=== PATIENT | female | born 1935 | race Caucasian/White ===

== ENCOUNTER → 2016-10-12 | Outpatient (CLI) | payer MEDICARE ==
[~2016-10-12] MED LIST: /WARF25TA OR; ACET65TA OR; ADVIL PO; ATEN50TA2 OR; FERR325T OR; LISINOPRIL/HCTZ PO; VICO5TAB OR
--- NOTE | 2016-10-14 09:14 | DEXA ---
AP SPINE L1 - L4 1.058 -1.1 0.9 LT FEMUR TOTAL 0.823 -1.5 0.7 RT FEMUR TOTAL 0.783 -1.8 0.4 TOTAL BODY TOTAL OTHER DUAL FEMUR FRAX* ASSESSMENT Risk factors: None. 10 year probability of fracture Major osteoporotic fracture 18.1 % Hip fracture 6.3 % COMMENTS: There is low bone density of the spine and hips. The density of the spine has increased 9.5% since the initial exam on 1998. The spine density has increased 12.3% since the most recent exam on 05/18/2010. The density of the left hip has decreased 10.3% since the initial exam on 1998. The density of the left hip has decreased 3.9% since the most recent exam on . The density of the right hip has decreased 9.4% since the initial exam on 1998. The density of the right hip has increased 0.0% since the most recent exam on FOLLOW-UP: Recommendation for the next bone density exam: 2 years. NESHA
== END | disposition home or self-care (01) ==
LOC: M WHC 10:50
PROVIDERS: ATTEND Internal Medicine Medical Oncology
DX: M85.89 Other specified disorders of bone density and structure, multiple sites (principal); Z85.3 Personal history of malignant neoplasm of breast

== ENCOUNTER → 2017-01-10 | Outpatient (REF) | payer MEDICARE | LOC: M LAB REF 12:33 | PROVIDERS: ATTEND Internal Medicine Medical Oncology | DX: C50.919 Malignant neoplasm of unspecified site of unspecified female breast (principal) ==

== ENCOUNTER → 2017-01-17 | Outpatient (CLI) | payer MEDICARE ==
--- NOTE | 2017-01-17 13:37 | REP ---
RIGHT HUMERUS, TWO VIEWS: HISTORY: Fall. There is no acute fracture or dislocation. There is narrowing of the acromioclavicular joint with associated osteophyte formation. IMPRESSION: Degenerative change as described above. Signed by John Padilla MD 01/17/2017 01:39 P
== END ==
LOC: M RAD 10:03
PROVIDERS: ATTEND Internal Medicine Medical Oncology
DX: M79.601 Pain in right arm (principal)

== ENCOUNTER 2017-02-14 14:13 | Outpatient (RCR) | payer MEDICARE | END 2017-02-15 | LOC: M PT 14:13 | PROVIDERS: ATTEND Internal Medicine Medical Oncology | DX: Z51.89 Encounter for other specified aftercare (principal); I89.0 Lymphedema, not elsewhere classified | CPT/HCPCS: 97110; 97140; 97162; G8984; G8985 ==

== ENCOUNTER 2017-02-24 09:57 | Outpatient (RCR) | payer MEDICARE | END 2017-03-17 | disposition home or self-care (01) | LOC: M PT 09:57 | PROVIDERS: ATTEND Internal Medicine Medical Oncology | DX: Z51.89 Encounter for other specified aftercare (principal); I89.0 Lymphedema, not elsewhere classified ==

== ENCOUNTER → 2017-03-20 | Outpatient (REF) | payer MEDICARE ==
[2017-03-20 20:32] LABS: ANION GAP 8 MEQ/L (8-16); BLOOD UREA NITROGEN 24 MG/DL (7-18); CALCIUM LEVEL 9.6 MG/DL (8.8-10.2); CARBON DIOXIDE LEVEL 30 MEQ/L (21-32); CHLORIDE LEVEL 105 MEQ/L (98-107); CREATININE FOR GFR 0.91 MG/DL (0.55-1.02); GLOMERULAR FILTRATION RATE > 60.0 (>32); GLUCOSE, FASTING 87 MG/DL (83-110); POTASSIUM SERUM 3.4 MEQ/L (3.5-5.1); SODIUM LEVEL 143 MEQ/L (136-145)
== END ==
LOC: M SFHCPLAZ 15:46
PROVIDERS: ATTEND Family Medicine
DX: I10 Essential (primary) hypertension (principal)
CPT/HCPCS: 36415; 80048; 90670; G0009; G0463

== ENCOUNTER → 2017-04-12 | Outpatient (REF) | payer MEDICARE | LOC: M LAB REF 13:27 | PROVIDERS: ATTEND Internal Medicine Medical Oncology | DX: C50.919 Malignant neoplasm of unspecified site of unspecified female breast (principal) ==

== ENCOUNTER → 2017-08-17 | Outpatient (CLI) | payer MEDICARE ==
--- NOTE | 2017-08-17 08:59 | REPMRS ---
Patient History The patient states she has not had a clinical breast exam in over a year. Patient is postmenopausal and has history of bilateral breast cancer at age 80. No known family history of cancer. Malignant radio exam breast specimen of both breasts, July 22, 2016. Malignant localization of breast nodule of the right breast, July 22, 2016. Malignant ultrasound-guided core biopsy of the right breast, June 08, 2016. Digital Woman Screen Mammo: August 17, 2017 - Exam #: [id number] Bilateral CC and MLO view(s) were taken. Technologist: Eli Hook, Technologist Prior study comparison: June 09, 2016, right breast digital mammo diagnostic unilateral, performed at [facility]. May 18, 2016, right breast digital mammo diagnostic unilateral, performed at [facility]. May 05, 2016, digital woman screen mammo performed at [facility]. March 26, 2015, digital woman screen mammo performed at [facility]. FINDINGS: There are scattered fibroglandular densities. There has been no change in the appearance of the mammogram from the prior studies. There is a mild amount of scattered fibroglandular density which is fairly symmetric. There is no interval development of dominant mass, architectural distortion, or clustered microcalcification suggestive of malignancy. ASSESSMENT: BI-RADS/ACR category 1 mammogram. Negative. Recommendation Routine screening mammogram in 1 year (for women over age 40). This mammogram was interpreted with the aid of an FDA-approved computer-aided dectection system. Electronically Signed By: Santana Bernard MD 08/17/17 [id number]
== END ==
LOC: M WHC 08:04
PROVIDERS: ATTEND Internal Medicine Medical Oncology
DX: Z12.31 Encounter for screening mammogram for malignant neoplasm of breast (principal)

== ENCOUNTER → 2017-09-08 | Outpatient (REF) | payer MEDICARE ==
[2017-09-08 13:33] LABS: CALCIUM LEVEL 8.7 MG/DL (8.8-10.2); CREATININE FOR GFR 1.02 MG/DL (0.55-1.02); GLOMERULAR FILTRATION RATE 55.1 (>32); POTASSIUM SERUM 3.4 MEQ/L (3.5-5.1)
== END ==
LOC: M SFHCPLAZ 11:55
PROVIDERS: ATTEND Family Medicine
DX: I10 Essential (primary) hypertension (principal)

== ENCOUNTER → 2017-09-26 | Outpatient (REF) | payer MEDICARE ==
[2017-09-26 16:37] LABS: ANION GAP 9 MEQ/L (8-16); BLOOD UREA NITROGEN 26 MG/DL (7-18); CALCIUM LEVEL 9.5 MG/DL (8.8-10.2); CARBON DIOXIDE LEVEL 30 MEQ/L (21-32); CHLORIDE LEVEL 101 MEQ/L (98-107); CREATININE FOR GFR 0.91 MG/DL (0.55-1.02); GLOMERULAR FILTRATION RATE > 60.0 (>32); GLUCOSE, FASTING 97 MG/DL (83-110); POTASSIUM SERUM 3.9 MEQ/L (3.5-5.1); SODIUM LEVEL 140 MEQ/L (136-145)
== END ==
LOC: M SFHCPLAZ 13:48
DX: E87.6 Hypokalemia (principal)
CPT/HCPCS: 80048

== ENCOUNTER → 2017-10-06 | Outpatient (CLI) | payer MEDICARE | LOC: M EKG 13:23 | DX: Z01.810 Encounter for preprocedural cardiovascular examination (principal); I10 Essential (primary) hypertension | CPT/HCPCS: 93005 ==

== ENCOUNTER 2017-10-16 07:15 | Day surgery (SDC) | payer MEDICARE ==
[2017-10-16] MEDS ORDERED: NEOSTIGMINE 10 MG/10 ML VIAL (J2710) (07:16)
[2017-10-16] MEDS ORDERED: EPINEPHrine INJ 1 MG/ML 1ML AMP (07:16)
[2017-10-16] MEDS ORDERED: ROPIvacaine 0.5% 30 ML INJECTION (J2795 PER 1MG) (07:16)
[2017-10-16] MEDS ORDERED: dexameTHASONE 10 MG/1 ML VIAL PRES.FREE (J1100) (07:16)
[2017-10-16] MEDS: LR 1,000 ML IV (07:55)
[2017-10-16] MEDS ORDERED: LIDOCAINE 2% INJ 100 MG/5 ML SDV (FOR ANES.) As Ordered (08:21)
[2017-10-16] MEDS ORDERED: PROPOFOL 200 MG/20 ML VIAL As Ordered (08:21)
[2017-10-16] MEDS ORDERED: fentaNYL 100 MCG/2 ML INJECTION (J3010) As Ordered ×2 (08:22→08:39)
[2017-10-16] MEDS ORDERED: MIDAZOLAM INJ 2 MG/2 ML VIAL (J2250) As Ordered (08:39)
[2017-10-16] MEDS ORDERED: ONDANSETRON 4MG/2ML VIAL (J2405) As Ordered ×2 (09:17→12:07)
[2017-10-16] MEDS: ONDANSETRON 4MG/2ML VIAL (J2405) IV (09:23)
[2017-10-16] MEDS: MIDAZOLAM INJ 2 MG/2 ML VIAL (J2250) IV (09:24)
[2017-10-16] MEDS: fentaNYL 100 MCG/2 ML INJECTION (J3010) IV (09:24)
[2017-10-16] MEDS: CEFAZOLIN SOD 1 GM in APPROPRIATE DILUENT 1 EA IV (10:27)
[2017-10-16] MEDS ORDERED: PHENYLEPHRINE INJ 10MG/ML VIAL (J2370) As Ordered (10:59)
[2017-10-16] MEDS ORDERED: ePHEDrine INJ 50 MG/ML VIAL As Ordered (10:59)
[2017-10-16] MEDS: EPINEPHrine 1MG/ML INJ 30ML MD-VIAL As Ordered (11:09)
[2017-10-16] MEDS ORDERED: NEOSTIGMINE 10 MG/10 ML VIAL (J2710) As Ordered (12:07)
[2017-10-16] MEDS ORDERED: GLYCOPYRROLATE INJ 0.2 MG/ML 2 ML VIAL As Ordered (12:07)
[2017-10-16] MEDS ORDERED: ESMOLOL INJ 100MG/10ML VIAL As Ordered (12:18)
[2017-10-16] MEDS ORDERED: fentaNYL 100 MCG/2 ML INJECTION (J3010) IV (13:00)
[2017-10-16] MEDS ORDERED: ONDANSETRON 4MG/2ML VIAL (J2405) IV (13:00)
[2017-10-16] MEDS ORDERED: LR 1,000 ML IV ×2 (13:00)
[2017-10-16] MEDS ORDERED: NORCO, ANEXSIA 5/325MG TABLET (HYDROcodone/ACETAMINOPHEN) PO (13:00)
[2017-10-16] MEDS ORDERED: PERCOCET 5MG/325MG TAB PO ×2 (13:00)
[2017-10-16] MEDS ORDERED: METOCLOPRAMIDE INJ 10MG/2ML VIAL (J2765) IV (13:00)
== END 2017-10-16 15:25 | disposition home or self-care (01) ==
LOC: M SDC 07:15
DX: M75.101 Unspecified rotator cuff tear or rupture of right shoulder, not specified as traumatic (principal); S46.111A Strain of muscle, fascia and tendon of long head of biceps, right arm, initial encounter; X58.XXXA Exposure to other specified factors, initial encounter; Y92.89 Other specified places as the place of occurrence of the external cause; M19.011 Primary osteoarthritis, right shoulder; I10 Essential (primary) hypertension; R01.1 Cardiac murmur, unspecified; K21.9 Gastro-esophageal reflux disease without esophagitis; C50.911 Malignant neoplasm of unspecified site of right female breast; M85.80 Other specified disorders of bone density and structure, unspecified site; R22.0 Localized swelling, mass and lump, head; E87.6 Hypokalemia; Z88.8 Allergy status to other drugs, medicaments and biological substances; Z88.5 Allergy status to narcotic agent; Z79.899 Other long term (current) drug therapy
CPT/HCPCS: 29827

== ENCOUNTER → 2017-10-24 | Outpatient (REF) | payer MEDICARE ==
[2017-10-24 18:15] LABS: APPEARANCE, URINE TURBID (CLEAR); BACTERIA, URINE AUTO 2+ (NEGATIVE); BILIRUBIN, URINE AUTO NEGATIVE (NEGATIVE); BLOOD, URINE BLOOD 3+ (NEGATIVE); COLOR, URINE AMBER (YELLOW); GLUCOSE, URINE (UA) AUTO NEGATIVE (NEGATIVE); KETONE, URINE AUTO NEGATIVE (NEGATIVE); LEUKOCYTE ESTERASE, URINE AUTO 2+ (NEGATIVE); NITRITE, URINE AUTO NEGATIVE (NEGATIVE); PROTEIN, URINE AUTO 2+ mg/dL (NEGATIVE); RBC, URINE AUTO TNTC /HPF (0-3); SPECIFIC GRAVITY URINE AUTO 1.018 (1.002-1.035); SQUAMOUS EPITHELIAL CELL UR AU 1 /HPF (0-6); UROBILINOGEN, URINE AUTO 0.2 mg/dL (0.0-2.0); WBC, URINE AUTO TNTC /HPF (0-3)
== END ==
LOC: M LAB REF 17:23
DX: R30.0 Dysuria (principal)
CPT/HCPCS: 81001

== ENCOUNTER → 2017-12-04 | Outpatient (REF) | payer MEDICARE ==
[2017-12-04 14:10] LABS: APPEARANCE, URINE HAZY (CLEAR); BACTERIA, URINE AUTO 1+ (NEGATIVE); BILIRUBIN, URINE AUTO NEGATIVE (NEGATIVE); BLOOD, URINE BLOOD 1+ (NEGATIVE); COLOR, URINE YELLOW (YELLOW); GLUCOSE, URINE (UA) AUTO NEGATIVE (NEGATIVE); KETONE, URINE AUTO NEGATIVE (NEGATIVE); LEUKOCYTE ESTERASE, URINE AUTO TRACE (NEGATIVE); MUCUS, URINE SMALL (NEGATIVE); NITRITE, URINE AUTO NEGATIVE (NEGATIVE); PROTEIN, URINE AUTO NEGATIVE (NEGATIVE); RBC, URINE AUTO 4 /HPF (0-3); SQUAMOUS EPITHELIAL CELL UR AU 1 /HPF (0-6); UROBILINOGEN, URINE AUTO 0.2 mg/dL (0.0-2.0); WBC, URINE AUTO 3 /HPF (0-3)
== END ==
LOC: M LAB REF 13:03
DX: C50.919 Malignant neoplasm of unspecified site of unspecified female breast (principal)
CPT/HCPCS: 81001

== ENCOUNTER → 2018-04-09 | Outpatient (REF) | payer MEDICARE ==
[2018-04-09 13:57] LABS: ANION GAP 9 MEQ/L (8-16); BLOOD UREA NITROGEN 20 MG/DL (7-18); CARBON DIOXIDE LEVEL 30 MEQ/L (21-32); CHLORIDE LEVEL 104 MEQ/L (98-107); CREATININE FOR GFR 0.97 MG/DL (0.55-1.30); GLOMERULAR FILTRATION RATE 58.4 (>32); GLUCOSE, FASTING 86 MG/DL (70-100); SODIUM LEVEL 143 MEQ/L (136-145)
== END ==
LOC: M SFHCPLAZ 11:07
DX: I10 Essential (primary) hypertension (principal); Z23 Encounter for immunization
CPT/HCPCS: 80048

== ENCOUNTER → 2018-05-02 | Outpatient (CLI) | payer MEDICARE | LOC: M WHC 09:54 | DX: M85.80 Other specified disorders of bone density and structure, unspecified site (principal); Z79.83 Long term (current) use of bisphosphonates | CPT/HCPCS: 77080 ==

== ENCOUNTER 2018-08-11 16:31 | Inpatient (IN) | payer MEDICARE ==
[2018-08-11] MEDS: LETROZOLE 2.5 MG TAB PO (03:00)
[2018-08-11] MEDS: ONDANSETRON 4MG/2ML VIAL (J2405) IV (17:00)
[2018-08-11] MEDS: fentaNYL 100 MCG/2 ML INJECTION (J3010) IV ×2 (17:00→18:50)
[2018-08-11 17:03] LABS: BASO % 0.5 % (0.0-1.0); EOS # 0.1 10^3/uL (0.0-0.50); EOS % 1.3 % (0.0-3.0); HEMATOCRIT 39.1 % (36.0-47.0); IMMATURE GRANULOCYTE % 0.5 % (0-3.0); LYMPH % 17.1 % (24.0-44.0); MEAN CORPUSCULAR HEMOGLOBIN 28.4 pg (27.0-33.0); MEAN CORPUSCULAR HGB CONC 33.2 g/dl (32.0-36.5); MEAN CORPUSCULAR VOLUME 85.6 fl (80.0-96.0); MONO # 0.6 10^3/uL (0.0-0.8); MONO % 10.3 % (0.0-5.0); NEUTROPHILS # 4.2 10^3/uL (1.8-7.7); NEUTROPHILS % 70.3 % (36.0-66.0); PLATELET COUNT, AUTOMATED 200 10^3/uL (150-450); RED BLOOD COUNT 4.57 10^6/uL (4.00-5.40); RED CELL DISTRIBUTION WIDTH 13.7 % (11.5-14.5)
[2018-08-11 17:17] LABS: ANION GAP 6 MEQ/L (8-16); BLOOD UREA NITROGEN 18 MG/DL (7-18); CARBON DIOXIDE LEVEL 30 MEQ/L (21-32); CHLORIDE LEVEL 100 MEQ/L (98-107); CREATININE FOR GFR 1.04 MG/DL (0.55-1.30); GLOMERULAR FILTRATION RATE 53.9 (>32); GLUCOSE, FASTING 130 MG/DL (70-100); POTASSIUM SERUM 3.2 MEQ/L (3.5-5.1); SODIUM LEVEL 136 MEQ/L (136-145)
[2018-08-11] MEDS: ceFAZolin SOD 1 GM in D5W MINI-BAG PLUS 50 ML IV (17:18)
[2018-08-11] MEDS ORDERED: PROPOFOL 200 MG/20 ML VIAL As Ordered (17:26)
[2018-08-11] MEDS: NS 1,000 ML IV (17:30)
[2018-08-11] MEDS: PROPOFOL 200 MG/20 ML VIAL IV ×3 (17:34→21:00)
[2018-08-11 18:56] LABS: INR 1.06; PROTHROMBIN TIME 13.9 SECONDS (12.1-14.4)
[2018-08-11 18:57] LABS: PARTIAL THROMBOPLASTIN TIME 28.5 SECONDS (25.4-37.6)
[2018-08-11 19:01] LABS: CK-MB VALUE MASS < 1.0 NG/ML (<3.6); CPK CREATINE PHOSPHOKINASE 75 U/L (26-192); MB/CK RELATIVE INDEX 1.33 (< OR =4); TROPONIN I < 0.02 NG/ML (< 0.10)
[2018-08-11] MEDS: KCL 10MEQ/100ML SWI (KRUN) 10 MEQ in APPROPRIATE DILUENT 1 EA IV (19:36)
[2018-08-11] MEDS ORDERED: NS 1,000 ML IV (20:41)
[2018-08-11] MEDS ORDERED: hydrALAZINE INJ 20 MG/ML VIAL IV (21:00)
[2018-08-11] MEDS ORDERED: ceFAZolin 1GM INJ (J0690 PER 500MG) As Ordered (23:20)
[2018-08-11] MEDS ORDERED: fentaNYL 100 MCG/2 ML INJECTION (J3010) As Ordered (23:50)
[2018-08-11] MEDS ORDERED: ePHEDrine SULFATE 25 MG/5 ML(5MG/ML) SYRINGE As Ordered (23:50)
[2018-08-12] MEDS ORDERED: METOCLOPRAMIDE INJ 10MG/2ML VIAL (J2765) As Ordered
[2018-08-12] MEDS ORDERED: PROPOFOL 200 MG/20 ML VIAL As Ordered (01:03)
[2018-08-12] MEDS ORDERED: LIDOCAINE 2% INJ 100 MG/5 ML SDV (FOR ANES.) As Ordered (01:03)
[2018-08-12] MEDS ORDERED: fentaNYL 100 MCG/2 ML INJECTION (J3010) As Ordered ×2 (01:03→01:38)
[2018-08-12] MEDS: fentaNYL 100 MCG/2 ML INJECTION (J3010) IV ×4 (01:40→02:08)
[2018-08-12] MEDS ORDERED: PERCOCET 5MG/325MG TAB As Ordered (01:50)
[2018-08-12] MEDS: PERCOCET 5MG/325MG TAB PO ×2 (01:52→07:02)
[2018-08-12] MEDS ORDERED: PERCOCET 5MG/325MG TAB PO (02:00)
[2018-08-12] MEDS ORDERED: ceFAZolin SOD 1 GM in D5W MINI-BAG PLUS 50 ML IV (02:00)
[2018-08-12] MEDS ORDERED: ONDANSETRON 4MG/2ML VIAL (J2405) As Ordered ×2 (02:25)
[2018-08-12] MEDS: ONDANSETRON 4MG/2ML VIAL (J2405) IV (02:28)
[2018-08-12] MEDS: hydrALAZINE INJ 20 MG/ML VIAL IV ×3 (03:00→13:22)
[2018-08-12] MEDS ORDERED: hydrALAZINE INJ 20 MG/ML VIAL IV (03:22)
[2018-08-12] MEDS: NS 1,000 ML IV (04:03)
[2018-08-12] MEDS: ceFAZolin SOD 1 GM in D5W MINI-BAG PLUS 50 ML IV ×2 (04:04→12:52)
[2018-08-12] MEDS: POTASSIUM CHLORIDE 10 MEQ SR TABLET PO (04:09)
[2018-08-12 05:56] LABS: HEMOGLOBIN 11.1 g/dl (12.0-15.5); MEAN CORPUSCULAR HGB CONC 33.6 g/dl (32.0-36.5); MEAN CORPUSCULAR VOLUME 83.3 fl (80.0-96.0); PLATELET COUNT, AUTOMATED 151 10^3/uL (150-450); RED BLOOD COUNT 3.96 10^6/uL (4.00-5.40); RED CELL DISTRIBUTION WIDTH 13.5 % (11.5-14.5); WHITE BLOOD COUNT 6.8 10^3/uL (4.0-10.0)
[2018-08-12 06:22] LABS: ANION GAP 7 MEQ/L (8-16); BLOOD UREA NITROGEN 16 MG/DL (7-18); CALCIUM LEVEL 8.2 MG/DL (8.8-10.2); CARBON DIOXIDE LEVEL 28 MEQ/L (21-32); CHLORIDE LEVEL 102 MEQ/L (98-107); CREATININE FOR GFR 0.99 MG/DL (0.55-1.30); GLUCOSE, FASTING 143 MG/DL (70-100); MAGNESIUM LEVEL 1.6 MG/DL (1.8-2.4); POTASSIUM SERUM 3.4 MEQ/L (3.5-5.1); SODIUM LEVEL 137 MEQ/L (136-145)
[2018-08-12] MEDS: LR 1,000 ML IV (07:24)
[2018-08-12] MEDS: MAG SULF 1GM/100ML (MAG RUN) 1 GM in APPROPRIATE DILUENT 1 EA IV (09:56)
[2018-08-12] MEDS ORDERED: ISOVUE-370 76% 100ML VIAL (Q9967) As Ordered (11:07)
[2018-08-12] MEDS: LISINOPRIL 20 MG TAB PO (12:19)
[2018-08-12] MEDS: MOM 30ML SUSPENSION UDC PO (12:19)
[2018-08-12] MEDS: MIRALAX *UNIT DOSE* 17GM PACKET PO (12:19)
[2018-08-12] MEDS: MULTIVITAMINS/MINERALS THERAP 1 TAB PO (12:20)
[2018-08-12] MEDS: ASPIRIN 325 MG TAB PO (12:52)
[2018-08-12] MEDS: ATENOLOL 50 MG TAB PO (12:53)
[2018-08-12] MEDS: ACETAMINOPHEN 500 MG TAB PO (12:53)
[2018-08-12] MEDS: traMADol 50 MG TAB PO (18:51)
[2018-08-12] MEDS: LETROZOLE 2.5 MG TAB PO (21:34)
[2018-08-13] MEDS: traMADol 50 MG TAB PO ×2 (05:45→13:38)
[2018-08-13 05:55] LABS: HEMATOCRIT 34.6 % (36.0-47.0); HEMOGLOBIN 11.2 g/dl (12.0-15.5); MEAN CORPUSCULAR HEMOGLOBIN 28.2 pg (27.0-33.0); MEAN CORPUSCULAR HGB CONC 32.4 g/dl (32.0-36.5); MEAN CORPUSCULAR VOLUME 87.2 fl (80.0-96.0); PLATELET COUNT, AUTOMATED 166 10^3/uL (150-450); RED BLOOD COUNT 3.97 10^6/uL (4.00-5.40); WHITE BLOOD COUNT 5.8 10^3/uL (4.0-10.0)
[2018-08-13 06:10] LABS: ANION GAP 6 MEQ/L (8-16); BLOOD UREA NITROGEN 16 MG/DL (7-18); CARBON DIOXIDE LEVEL 29 MEQ/L (21-32); CHLORIDE LEVEL 104 MEQ/L (98-107); CREATININE FOR GFR 0.96 MG/DL (0.55-1.30); GLOMERULAR FILTRATION RATE 59.1 (>32); GLUCOSE, FASTING 99 MG/DL (70-100); POTASSIUM SERUM 3.5 MEQ/L (3.5-5.1); SODIUM LEVEL 139 MEQ/L (136-145)
[2018-08-13] MEDS: ACETAMINOPHEN 500 MG TAB PO (06:18)
[2018-08-13] MEDS: ASPIRIN 325 MG TAB PO (08:20)
[2018-08-13] MEDS: LISINOPRIL 20 MG TAB PO (08:20)
[2018-08-13] MEDS: MULTIVITAMINS/MINERALS THERAP 1 TAB PO (08:20)
[2018-08-13] MEDS: MOM 30ML SUSPENSION UDC PO (08:20)
[2018-08-13] MEDS: ATENOLOL 50 MG TAB PO (08:21)
[2018-08-13] MEDS: MIRALAX *UNIT DOSE* 17GM PACKET PO (08:21)
== END 2018-08-13 16:50 | disposition home health service (06) | DRG 494 ==
LOC: M PCU 08-12 02:45 → M ED 16:31 → M MSPAV 08-12 14:49 → M ED INP 19:52
PROC: 0QSJ04Z Reposition Right Fibula with Internal Fixation Device, Open Approach (ICD-10-PCS; principal; 2018-08-11 23:12)
DX: S82.851A Displaced trimalleolar fracture of right lower leg, initial encounter for closed fracture (principal); W10.8XXA Fall (on) (from) other stairs and steps, initial encounter; Y92.009 Unspecified place in unspecified non-institutional (private) residence as the place of occurrence of the external cause; I10 Essential (primary) hypertension; E83.42 Hypomagnesemia; E87.6 Hypokalemia; Z85.3 Personal history of malignant neoplasm of breast; Z96.653 Presence of artificial knee joint, bilateral; Z90.710 Acquired absence of both cervix and uterus; Z79.899 Other long term (current) drug therapy; Z79.811 Long term (current) use of aromatase inhibitors; Z88.5 Allergy status to narcotic agent; Z88.8 Allergy status to other drugs, medicaments and biological substances

== ENCOUNTER → 2018-10-08 | Outpatient (REF) | payer MEDICARE ==
[~2018-10-08] MED LIST changes: +ACET-683 PO; +ASPI-222 PO; +ASPI325T PO; +ATEN50TA2 PO; +CALC600T57 PO; +CRAN400C PO; +LETR2.5T2 PO; +LISI20TA PO; +MILK120011 PO; +MULT1TAB10 PO; +PEG1POW PO; +PERC5TAB12 PO; +POTA1TAB23; +TRAM50TA2 PO; +VITA1CAP7 PO
[2018-10-08 13:56] LABS: CALCIUM LEVEL 9.3 MG/DL (8.8-10.2); CREATININE FOR GFR 1.26 MG/DL (0.55-1.30); GLOMERULAR FILTRATION RATE 43.1 (>32); POTASSIUM SERUM 4.3 MEQ/L (3.5-5.1)
== END ==
LOC: M SFHCPLAZ 10:26
PROVIDERS: ATTEND Family Medicine
DX: I10 Essential (primary) hypertension (principal); M85.89 Other specified disorders of bone density and structure, multiple sites
CPT/HCPCS: 36415; 80048; 82306; G0463

== ENCOUNTER → 2018-11-05 | Outpatient (REF) | payer MEDICARE ==
[2018-11-05 16:21] LABS: CALCIUM LEVEL 9.6 MG/DL (8.8-10.2); CREATININE FOR GFR 1.06 MG/DL (0.55-1.30); GLOMERULAR FILTRATION RATE 52.6 (>32); POTASSIUM SERUM 3.9 MEQ/L (3.5-5.1)
== END ==
LOC: M SFHCPLAZ 14:05
PROVIDERS: ATTEND Family Medicine
DX: R94.4 Abnormal results of kidney function studies (principal)

== ENCOUNTER → 2019-04-12 | Outpatient (REF) | payer MEDICARE ==
[~2019-04-12] MED LIST changes: -/WARF25TA OR; +ASPI-1 PO; -ASPI325T PO; +COUM1TAB18 OR; +D-3-50003 PO; -VITA1CAP7 PO
[2019-04-12 15:37] LABS: CALCIUM LEVEL 9.4 MG/DL (8.8-10.2); CHOLESTEROL RISK RATIO 4.888 (<5); CREATININE FOR GFR 1.03 MG/DL (0.55-1.30); GLOMERULAR FILTRATION RATE 54.3 (>32); POTASSIUM SERUM 4.2 MEQ/L (3.5-5.1)
== END ==
LOC: M SFHCPLAZ 13:13
PROVIDERS: ATTEND Family Medicine
DX: I12.9 Hypertensive chronic kidney disease with stage 1 through stage 4 chronic kidney disease, or unspecified chronic kidney disease (principal); N18.3 Chronic kidney disease, stage 3 (moderate); Z13.220 Encounter for screening for lipoid disorders

== ENCOUNTER → 2019-04-30 | Outpatient (CLI) | payer MEDICARE ==
[~2019-04-30] MED LIST changes: -LISI20TA PO; +LISI20TA18 PO
== END ==
LOC: M WHC 10:33
PROVIDERS: ATTEND Family Medicine
DX: M81.0 Age-related osteoporosis without current pathological fracture (principal); Z12.31 Encounter for screening mammogram for malignant neoplasm of breast; Z78.0 Asymptomatic menopausal state; Z85.3 Personal history of malignant neoplasm of breast; Z86.018 Personal history of other benign neoplasm; Z92.29 Personal history of other drug therapy

== ENCOUNTER → 2019-04-30 | Outpatient (CLI) | payer MEDICARE ==
--- NOTE | 2019-04-30 13:28 | REPMRS ---
Patient History The patient states she had a clinical breast exam in 02/2019. Patient is postmenopausal and has history of bilateral breast cancer at age 80. No known family history of cancer. Malignant radio exam breast specimen of both breasts, July 22, 2016. Malignant localization of breast nodule of the right breast, July 22, 2016. Malignant ultrasound-guided core biopsy of the right breast, June 08, 2016. Taking letrazole for 3 years. Digital Woman Screen Mammo: April 30, 2019 - Exam #: [id number] Bilateral CC and MLO view(s) were taken. Technologist: Anais Marin, Technologist Prior study comparison: August 17, 2017, digital woman screen mammo performed at [facility]. June 09, 2016, right breast digital mammo diagnostic unilateral, performed at [facility]. March 26, 2015, digital woman screen mammo performed at [facility]. FINDINGS: There are scattered fibroglandular densities. There are a group of benign calcifications associated with fat necrosis in the right breast laterally at the previous biopsy site. There is a moderate amount of residual fibroglandular tissue which is fairly symmetric. There is no interval development of dominant mass, architectural distortion, or grouped microcalcification typical of malignancy. There has been no change in the appearance of the mammogram from the prior studies. 3-D tomosynthesis shows no additional findings. Assessment: BI-RADS/ACR category 2 mammogram. Benign Findings. Recommendation Routine screening mammogram of both breasts in 1 year (for women over age 40). This mammogram was interpreted with the aid of an FDA-approved computer-aided dectection system. Electronically Signed By: Santana Bernard MD 04/30/19 [id number]
== END ==
LOC: M WHC 10:41
PROVIDERS: ATTEND Internal Medicine Hematology & Oncology
DX: Z12.31 Encounter for screening mammogram for malignant neoplasm of breast (principal); Z78.0 Asymptomatic menopausal state; Z85.3 Personal history of malignant neoplasm of breast; Z86.018 Personal history of other benign neoplasm; Z92.29 Personal history of other drug therapy

== ENCOUNTER → 2019-10-14 | Outpatient (REF) | payer MEDICARE ==
[~2019-10-14] MED LIST changes: -ASPI-222 PO; +ASPI-527 PO; -LISI20TA18 PO; +LISI20TA19 PO
[2019-10-14 14:19] LABS: CALCIUM LEVEL 9.5 MG/DL (8.8-10.2); CREATININE FOR GFR 1.05 MG/DL (0.55-1.30); POTASSIUM SERUM 3.9 MEQ/L (3.5-5.1)
[2019-10-14 14:30] LABS: TOTAL 25(OH) VITAMIN D 50.5 NG/ML (30.0-100.0)
== END ==
LOC: M SFHCPLAZ 11:09
PROVIDERS: ATTEND Family Medicine
DX: I12.9 Hypertensive chronic kidney disease with stage 1 through stage 4 chronic kidney disease, or unspecified chronic kidney disease (principal); N18.3 Chronic kidney disease, stage 3 (moderate); M81.0 Age-related osteoporosis without current pathological fracture
CPT/HCPCS: 36415; 80048; 82306; G0463

== ENCOUNTER → 2019-10-22 | Outpatient (CLI) | payer MEDICARE ==
--- NOTE | 2019-10-22 14:26 | REP ---
Whole body radionuclide bone scan: There are no comparison bone scan studies. Whole-body images are provided. Additionally lateral views of the skull, knees and ankles are performed and oblique views of the ribs and pelvis are performed. There is uptake in the shoulders bilaterally, likely degenerative. There is uptake in the sternoclavicular joints bilaterally, likely degenerative. There is uptake at the costochondral junctions of a few inferior ribs bilaterally, likely degenerative. There is uptake in the wrists bilaterally, likely degenerative. There is a focal uptake at the approximate L3/four level to the right of midline. This is nonspecific and could be degenerative or metastatic. There are multiple uptake foci in the sacrum, compatible with metastases. There are bilateral knee arthroplasties with periarticular uptake, not unusual. There is uptake in the ankles bilaterally, likely degenerative. Impression: There is uptake in the sacrum, likely neoplastic. There is uptake in the mid lumbar spine, nonspecific. There is uptake in the shoulders, sternoclavicular joints, rib costochondral junctions and wrists and ankles, likely degenerative. The study is performed with 21.5 mCi of technetium 99m MDP. Electronically Signed by Tyler Martinez MD 10/22/2019 02:18 P
== END ==
LOC: M RAD 10:16
PROVIDERS: ATTEND Internal Medicine Hematology & Oncology
DX: Z85.3 Personal history of malignant neoplasm of breast (principal)
CPT/HCPCS: 78306; A9503

== ENCOUNTER → 2019-11-05 | Outpatient (CLI) | payer MEDICARE ==
--- NOTE | 2019-11-05 19:34 | REP ---
Whole body PET CT scan for restaging of breast carcinoma: The patient has history of breast carcinoma. The patient had new foci of uptake on the recent radionuclide bone scan of 82 01/06/2020 in the sacrum and in the L3-L4 lumbar spine. Whole body PET CT scanning is performed from skull base to the upper thighs. Neck and supraclavicular areas: There are no hypermetabolic foci. Chest: There are no hypermetabolic foci. Abdomen, pelvis and upper thighs: There are no hypermetabolic foci. Specifically, there are no hypermetabolic foci in the sacrum or lumbar spine. On the CT accompanying the PET scan, there are no lytic, blastic or destructive skeletal changes in the sacrum, lumbar spine or elsewhere in the visualized skeletal structures. Impression: There are no skeletal hypermetabolic foci. The zones of skeletal uptake on the recent bone scan in the sacrum and lumbar spine could be from prior trauma or degenerative disease. There are no lytic, blastic or destructive skeletal changes in these zones on the CT scan accompanying the PET scan. The study is performed with 8.14 mCi of F 18 FDG. Electronically Signed by Tyler Martinez MD 11/05/2019 07:25 P
== END ==
LOC: M PLARAD 13:30
PROVIDERS: ATTEND Internal Medicine Hematology & Oncology
DX: R93.7 Abnormal findings on diagnostic imaging of other parts of musculoskeletal system (principal); C50.811 Malignant neoplasm of overlapping sites of right female breast
CPT/HCPCS: 78815; A9552

== ENCOUNTER → 2019-11-07 | Outpatient (CLI) | payer MEDICARE ==
[~2019-11-07] MED LIST changes: +GASTROGRAFIN SOLUTION 30ML (Q9963) As Ordered ONE; +ISOVUE-370 76% 100ML VIAL (Q9967) As Ordered ONE
--- NOTE | 2019-11-07 16:40 | REP ---
Clinical: History of breast cancer. Technique: Axial contrast enhanced images from the thoracic inlet to the upper abdomen with coronal and sagittal re-formations using 100 ml Isovue 370 intravenous contrast material. Findings: The lung bello demonstrate mild age-related changes along with small amount of scarring at the lingula and left lower lobe. No pulmonary parenchymal consolidation, obvious nodule or mass lesion. No pleural effusion. No pneumothorax. Tracheobronchial tree is patent. No obvious axillary, hilar, or mediastinal adenopathy. Atherosclerotic changes to the thoracic aorta noted without aneurysm or dissection. Heart and pericardium are grossly normal. Musculoskeletal structures demonstrate degenerative changes without obvious focal abnormality. Impression: No obvious acute mediastinal or pleuroparenchymal process. No obvious evidence for metastatic disease. Electronically Signed by Ashok Watson MD 11/07/2019 04:32 P
--- NOTE | 2019-11-11 10:46 | REP ---
REPEAT DICTATION CT ABDOMEN AND PELVIS: HISTORY: History breast carcinoma question metastasis. Comparison PET/CT study November 05, 2019. Comparison radionuclide bone scan October 22, 2019. CT CONTRAST DOSE: 100 mL of intravenous Isovue [address] study is from a August 12, 2018. CT FINDINGS: Preliminary digital greige goods marker radiograph is unremarkable. There is mild diffuse fatty infiltration of the liver. No focal liver mass lesion is seen. No adrenal lesion is observed. The spleen is normal in size homogeneous in texture. There is a small accessory splenule adjacent to the pancreatic tail. No abnormalities noted in the pancreas or the gallbladder. The kidneys enhance symmetrically. There are small cortical cysts in the left kidney. Normal caliber aorta. No retroperitoneal mass or adenopathy is seen. Small and large intestinal bowel loops are unremarkable in the upper abdomen. There is sigmoid colon diverticulosis without CT evidence of diverticulitis. No colonic mass lesion is seen. No adenopathy is noted. The uterus is surgically absent. The appendix is not confidently identified but there is no CT evidence to suggest appendicitis. Bone window settings show no bony destructive lesion. There is however cortical irregularity and a little sclerosis about a fracture in the distal sacrum. This is visible on sagittal image number 65 of 135 in series 207 of today's study. It is a new finding compared with the prior sagittal images from CT study August 12, 2018. This is confirmed on coronal reformatted images where the sacral fracture extends a little farther to the left than to the right. This is felt to correspond with the radionuclide bone scan uptake in the lower sacrum. There are degenerative disc changes in the lumbar spine. IMPRESSION: 1. Healing transverse fracture distal sacrum nondisplaced. New from August 12, 2018. This is felt to account for the radionuclide bone scan uptake distributed horizontally across the lower sacrum on October 22, 2019. 2. Left colonic diverticulosis. 3. Diffuse fatty infiltration of the liver. Otherwise unremarkable. Electronically Signed by Ck Bernard MD 11/11/2019 03:50 P
== END ==
LOC: M RAD 13:55
PROVIDERS: ATTEND Internal Medicine Hematology & Oncology
DX: C50.919 Malignant neoplasm of unspecified site of unspecified female breast (principal)
CPT/HCPCS: 71260; 74177; Q9963; Q9967

== ENCOUNTER → 2019-11-11 | Outpatient (CLI) | payer MEDICARE ==
[~2019-11-11] MED LIST changes: -GASTROGRAFIN SOLUTION 30ML (Q9963) As Ordered ONE; -ISOVUE-370 76% 100ML VIAL (Q9967) As Ordered ONE; +PROHANCE 279.3MG/ML 5ML VIAL (A9576) As Ordered ONE
--- NOTE | 2019-11-11 10:53 | REP ---
MRI LUMBAR SPINE WITHOUT CONTRAST: HISTORY: History breast carcinoma. Positive bone scan October 22, 2019. Comparison CT study abdomen and pelvis November 07, 2019. Comparison PET scan November 05, 2019. TECHNIQUE: Sagittal and axial T1- and T2-weighted scans are acquired in the usual fashion with and without fat saturation. Sequences include spin echo, turbo spin echo, and STIR imaging sequences. At my request the study was expanded to include the sacrum. MRI FINDINGS: The axial sagittal and coronal images demonstrate a healing horizontally oriented fracture through the lower sacral segment extending a little higher and more laterally on the left than the right. This is nondisplaced. There is contrast enhancement and T2 hyperintensity about the fracture of the distal sacrum. No bony destructive lesion is seen in the sacrum. The SI joints are unremarkable. In the lumbar spine, lumbar vertebral body heights are preserved. Alignment is normal. There is diffuse degenerative disc disease with multilevel disc bulging. The tip of the conus medullaris is normal in position and appearance at T12. L1-L2, there is diffuse disc bulging. L2-L3, there is diffuse disc bulging effacing the ventral subarachnoid space. No central canal stenosis is seen. At L3-4, there is a small broad-based central disc protrusion. There is facet and ligamentum flavum hypertrophy. Canal size is borderline at L3-4. No foraminal narrowing is seen. At L4-5, there is minimal discogenic spurring and disc bulging. No central canal stenosis or foraminal narrowing. Mild ligamentum flavum hypertrophy is noted. At L5-S1 there is facet hypertrophy bilaterally and a small central broad-based focal disc protrusion. No bony destructive lesion is appreciated. Postcontrast images show enhancement at the site of the healing sacral fracture as above. No other suspicious or abnormal contrast enhancement is seen. IMPRESSION: 1. No evidence to suggest skeletal metastatic disease. 2. Degenerative spondylosis changes. 3. Healing distal sacral fracture, nondisplaced. Electronically Signed by Ck Bernard MD 11/11/2019 03:51 P
== END ==
LOC: M RAD 08:48
PROVIDERS: ATTEND Internal Medicine Hematology & Oncology
DX: C50.919 Malignant neoplasm of unspecified site of unspecified female breast (principal)
CPT/HCPCS: 72158; A9576

== ENCOUNTER → 2020-06-05 | Outpatient (CLI) | payer MEDICARE ==
[~2020-06-05] MED LIST changes: +ALEN70TA74 PO; -LISI20TA19 PO; +LISI20TA35 PO; -PROHANCE 279.3MG/ML 5ML VIAL (A9576) As Ordered ONE
--- NOTE | 2020-06-05 15:13 | REPMRS ---
Patient History The patient states she had a clinical breast exam in May 2020.No known family history of cancer. Malignant radio exam breast specimen of both breasts, July 22, 2016. Malignant localization of breast nodule of the right breast, July 22, 2016. Malignant ultrasound-guided core biopsy of the right breast, June 08, 2016. Taking unspecified hormones for 3 years. Digital Woman Screen Mammo: June 05, 2020 - Exam #: [id number] Bilateral CC and MLO view(s) were taken. Technologist: Mela Pollack, Technologist Prior study comparison: April 30, 2019, bilateral digital woman screen mammo performed at [facility]. August 17, 2017, digital woman screen mammo performed at [facility]. May 05, 2016, digital woman screen mammo performed at [facility]. FINDINGS: There are scattered fibroglandular densities. The Volpara volumetric breast density category is:B. There has been no change in the appearance of the mammogram from the prior studies. There is a mild amount of scattered fibroglandular density which is fairly symmetric. There is no interval development of dominant mass, architectural distortion, or grouped microcalcification suggestive of malignancy. 3-D tomosynthesis shows no additional findings. Assessment: BI-RADS/ACR category 1 mammogram. Negative Mammogram. Recommendation Routine screening mammogram of both breasts in 1 year (for women over age 40). This mammogram was interpreted with the aid of an FDA-approved computer-aided dectection system. Electronically Signed By: Santana Bernard MD 06/05/20 [id number]
== END ==
LOC: M WHC 12:17
PROVIDERS: ATTEND Internal Medicine Medical Oncology
DX: Z12.31 Encounter for screening mammogram for malignant neoplasm of breast (principal)

== ENCOUNTER → 2020-09-19 | Outpatient (CLI) | payer MEDICARE ==
[~2020-09-19] MED LIST changes: +VITMTA PO
== END ==
LOC: M LABSMTC 10:13
PROVIDERS: ATTEND Anesthesiology
DX: Z01.812 Encounter for preprocedural laboratory examination (principal); Z20.828 Contact with and (suspected) exposure to other viral communicable diseases

== ENCOUNTER 2020-09-24 10:01 | Day surgery (SDC) | payer MEDICARE ==
[~2020-09-24] VITALS: Ht 144.8 cm; Wt 63.0 kg
[~2020-09-24 10:01] MED LIST changes: +BSS IRR 500ML/OMIDRIA 4ML IRR BAG (OR ONLY) As Ordered ONE; +CEFUROXIME 1MG/0.1ML INTRACAMERAL INJ As Ordered ONE; +DUOVISC (0.50ML VISCOAT/0.55ML PROVISC) OPHTH KIT As Ordered ONE; +OFLOXACIN 0.3 % (OCUFLOX) OPTH SOL 5ML OS ONE; +PHENYLEPHRINE 2.5% OPHTH SOL 2ML OS ONE; +POVIDONE-IODINE 5% OPHTH PREP SOL 30ML As Ordered ONE; +PROPARACAINE 0.5% OPHTH SOL 15ML OS ONE; +TROPICAMIDE 1% OPHTH SOLN 2ML OS ONE
[2020-09-24] MEDS ORDERED: MIDAZOLAM INJ 2MG/2ML VIAL (J2250 PER 1MG) As Ordered ONE (10:51)
[2020-09-24] MEDS ORDERED: fentaNYL 100 MCG/2 ML INJECTION (J3010) As Ordered ONE (10:51)
[2020-09-24 14:21] VITALS: BP 160/70
--- NOTE | 2020-09-25 08:38 | RO ---
OPERATIVE NOTE DATE OF OPERATION: 09/24/2020 PREOPERATIVE DIAGNOSIS: 1. Visually significant nuclear sclerotic cataract, left eye. POSTOPERATIVE DIAGNOSIS: 1. Visually significant nuclear sclerotic cataract, left eye. PROCEDURE: 1. Cataract extraction with use of phacoemulsification, and placement of intraocular lens, AU00T0 22.0, left eye. SURGEON: Irvin Wall DO ANESTHESIA: Local (Omidria with MAC) COMPLICATIONS: None POSTOPERATIVE CONDITION: Stable INDICATIONS FOR SURGERY: 1. Blurred vision affecting patient's activities of daily living. DESCRIPTION OF PROCEDURE: The patient was seen in the preoperative area and properly identified. The correct operative eye was identified and marked. The patient received topical anesthetic, antibiotics, and topical dilating drops. The patient was then transferred to the operating room. The correct side was re-identified and a time-out was performed. The eye was prepped and draped in a sterile fashion. The eyelids were isolated with Tegaderm tape and the lids were held open with an adjustable speculum. A 1.0mm paracentesis incision was made. Omidria was then injected into the anterior chamber. Viscoelastic was then injected into the anterior chamber through the paracentesis. Using a 2.4mm sharp-tipped keratome, the anterior chamber was entered via a temporal clear cornea incision. A continuous curvilinear capsulorrhexis was created with Utrata forceps. Hydrodissection was performed with BSS on a blunt cannula until the nucleus was able to rotate freely. The crystalline lens was phacoemulsified and aspirated. Irrigation/aspiration was used to remove the cortical material Cohesive viscoelastic was placed into the capsular bag to deepen it. The implant was placed into the capsular bag and allowed to unfold. Placement was confirmed by visualizing the anterior capsulorrhexis. Irrigation/aspiration was used to remove the viscoelastic. The clear corneal incision was hydrated with BSS on a blunt cannula. The lens was well positioned. Intracameral antibiotic was injected into the anterior chamber. The incisions were then tested for leaks and found to be negative. The eye was then palpated for appropriate pressure and adjusted accordingly with BSS. The eyelid speculum was then carefully removed. A shield was placed over the eye. The patient tolerated the procedure well and was discharge to the recovery unit in a stable condition. NESHA
== END 2020-09-24 14:26 | disposition home or self-care (01) ==
LOC: M SDC 10:01
PROVIDERS: ATTEND Ophthalmology
DX: H25.12 Age-related nuclear cataract, left eye (principal); I10 Essential (primary) hypertension; K21.9 Gastro-esophageal reflux disease without esophagitis; Z85.3 Personal history of malignant neoplasm of breast; Z92.21 Personal history of antineoplastic chemotherapy; Z79.899 Other long term (current) drug therapy; Z88.5 Allergy status to narcotic agent; Z88.8 Allergy status to other drugs, medicaments and biological substances
CPT/HCPCS: 66984; J1097; J2250; J3010; V2632

== ENCOUNTER → 2020-09-26 | Outpatient (CLI) | payer MEDICARE ==
[~2020-09-26] MED LIST changes: -BSS IRR 500ML/OMIDRIA 4ML IRR BAG (OR ONLY) As Ordered ONE; -CEFUROXIME 1MG/0.1ML INTRACAMERAL INJ As Ordered ONE; -DUOVISC (0.50ML VISCOAT/0.55ML PROVISC) OPHTH KIT As Ordered ONE; -OFLOXACIN 0.3 % (OCUFLOX) OPTH SOL 5ML OS ONE; -PHENYLEPHRINE 2.5% OPHTH SOL 2ML OS ONE; -POVIDONE-IODINE 5% OPHTH PREP SOL 30ML As Ordered ONE; -PROPARACAINE 0.5% OPHTH SOL 15ML OS ONE; -TROPICAMIDE 1% OPHTH SOLN 2ML OS ONE
== END ==
LOC: M LABSMTC 08:53
PROVIDERS: ATTEND Anesthesiology
DX: Z20.822 Contact with and (suspected) exposure to COVID-19 (principal)

== ENCOUNTER 2020-10-01 10:05 | Day surgery (SDC) | payer MEDICARE ==
[~2020-10-01] VITALS: Ht 144.8 cm; Wt 59.0 kg
[~2020-10-01 10:05] MED LIST changes: -ALEN70TA74 PO; +ALEN70TA82 PO; +CEFUROXIME 1MG/0.1ML INTRACAMERAL INJ As Ordered ONE; +DUOVISC (0.50ML VISCOAT/0.55ML PROVISC) OPHTH KIT As Ordered ONE; +MIDAZOLAM INJ 2MG/2ML VIAL (J2250 PER 1MG) As Ordered ONE; +OFLOXACIN 0.3 % (OCUFLOX) OPTH SOL 5ML OD ONE; +PHENYLEPHRINE 2.5% OPHTH SOL 2ML OD ONE; +POVIDONE-IODINE 5% OPHTH PREP SOL 30ML As Ordered ONE; +PROPARACAINE 0.5% OPHTH SOL 15ML OD ONE; +TROPICAMIDE 1% OPHTH SOLN 2ML OD ONE; +fentaNYL 100 MCG/2 ML INJECTION (J3010) As Ordered ONE
--- OUTSIDE RECORDS SUMMARY | 2020-10-01 10:11 | CCD ---
Author Author [facility] Organization [facility] Address Unknown Phone Unavailable Support Name Relationship Address Phone RETIRED Next Of Kin Unknown MAHONEYS AUTO MALL Next Of Kin Unknown NONE, LISTED Next Of Kin , [address] FRANMIO TAYLOR Next Of Kin [address] [place] [address] RE Next Of Kin Unknown Unavailable NELIL DOUGLAS Next Of Kin [address] [place] [address] FranmioShantellah ECON [address] [place] [address] Unavailable Re-disclosure Warning The records that you are about to access may contain information from federally-assisted alcohol or drug abuse programs. If such information is present, then the following federally mandated warning applies: This information has been disclosed to you from records protected by federal confidentiality rules (42 CFR part 2). The federal rules prohibit you from making any further disclosure of this information unless further disclosure is expressly permitted by the written consent of the person to whom it pertains or as otherwise permitted by 42 CFR part 2. A general authorization for the release of medical or other information is NOT sufficient for this purpose. The Federal rules restrict any use of the information to criminally investigate or prosecute any alcohol or drug abuse patient.The records that you are about to access may contain highly sensitive health information, the redisclosure of which is protected by Article 27-F of the [place] State Public Health law. If you continue you may have access to information: Regarding HIV / AIDS; Provided by facilities licensed or operated by the [facility] Office of Mental Health; or Provided by the [facility] Office for People With Developmental Disabilities. If such information is present, then the following [facility] mandated warning applies: This information has been disclosed to you from confidential records which are protected by state law. State law prohibits you from making any further disclosure of this information without the specific written consent of the person to whom it pertains, or as otherwise permitted by law. Any unauthorized further disclosure in violation of state law may result in a fine or [place] [facility] sentence or both. A general authorization for the release of medical or other information is NOT sufficient authorization for further disc losure. Allergies and Adverse Reactions Type Description Substance Reaction Status Data Source(s ) Drug allergy Atorvastatin Calcium atorvastatin muscle weakness Activ e eCW1 ([facility]) Drug allergy Morphine Sulfate Morphine Nausea/Vomiting Active eCW1 ([facility]) Family History Family Member Name Family Member Gender Family Member Status Date o f Status Description Data Source(s) Unknown Male Problem MEDENT ([facility]) Unknown Female Problem MEDENT ([facility], ) Unknown Female Problem MEDENT ([facility], ) Encounters Encounter Providers Location Date Indications Data Source(s ) Unknown [address] [facility] [id number] 09/15/2020 12:00:00 AM EST [facility] Unknown [address] [facility] [place] [address] 08/31/2020 12:00:00 AM EST eCW1 ([facility] [place] [address] [facility] [place] [address] 06/22/2020 12:00:00 AM EDT eCW1 (Psychiatric hospital) [facility] [address] [facility] [place] [address] 04/13/2020 12:00:00 AM EDT eCW1 ([facility] hospital) [place] [address] [facility] [place] [address] 03/09/2020 12:00:00 AM EDT eCW1 (Psychiatric hospital) [facility] [place] [address] [facility] [place] [address] 12/02/2019 12:00:00 AM EDT eCW1 (Psychiatric hospital) [facility] [address] [facility] [place] [address] 10/14/2019 12:00:00 AM EST eCW1 ([facility]) Medications Medication Brand Name Start Date Product Form Dose Route Admi nistrative Instructions Pharmacy Instructions Status Indications Reaction Description Data Source(s) Alendronic acid 70 MG Oral Tablet Alendronate Sodium 7 0 MG Alendronate Sodium 70 MG 10/14/2019 12:00:00 AM EST active 1 tablet 30 minutes before the first food, beverage or medicine of the day with plain water eCW1 ([facility]) Alendronic acid 70 MG Oral Tablet Alendronate Sodium 7 0 MG Alendronate Sodium 70 MG 10/14/2019 12:00:00 AM EST active Alendronate Sodium 70 MG eCW1 ([facility]) Alendronic acid 70 MG Oral Tablet Alendronate Sodium 7 0 MG Alendronate Sodium 70 MG 10/14/2019 12:00:00 AM EST active Alendronate Sodium 70 MG eCW1 ([facility]) Alendronic acid 70 MG Oral Tablet Alendronate Sodium 7 0 MG Alendronate Sodium 70 MG 10/14/2019 12:00:00 AM EST active Alendronate Sodium 70 MG eCW1 ([facility]) Alendronic acid 70 MG Oral Tablet Alendronate Sodium 7 0 MG Alendronate Sodium 70 MG 10/14/2019 12:00:00 AM EST active Alendronate Sodium 70 MG eCW1 ([facility]) Insurance Providers Payer name Policy type / Coverage type Policy ID Covered alliance party ID Covered alliance party's relationship to carrillo Policy [place] Plan Information MEDICARE [id number] SP [id number] [facility] OPTIONS [id number] SP [id number] [facility] OPTIONS [id number] SP [id number] MEDICARE [id number] SP [id number] MEDICARE [id number] SP [id number] MEDICARE [id number] SP [id number] D ANSI-Commercial [id number] ANS-Medicare Part B [id number] ANSI-Medicare Part B [id number] ANSI-Commercial [id number] ANSI-Medicare Part B [id number] ANSI-Medicare Part B [id number] Medicare Dme Supplies Medigap Part B [id number] Self [id number] Todays Options Amer Prog Medigap Part B [id number] Self [id number] [facility] Options Medigap Part B [id number] Self [id number] Medicare Dme Supplies Medigap Part B [id number] Self [id number] [place] Primary [id number] Self [id number] [facility] Medigap Part B [id number] Self [id number] Medicare Dme Supplies Medigap Part B [id number] Self [id number] Todays Options Amer Prog Medigap Part B [id number] Self [id number] [facility] Options Medigap Part B [id number] Self [id number] Medicare Dme Supplies Medigap Part B [id number] Self [id number] [place] Primary [id number] Self [id number] ANSI-Commercial [id number] ANSI-Medicare Part B [id number] Medicare Dme Supplies Medigap Part B [id number] Self [id number] Todays Options Amer Prog Medigap Part B [id number] Self [id number] [facility] Options Medigap Part B [id number] Self [id number] Medicare Dme Supplies Medigap Part B [id number] Self [id number] [place] Primary [id number] Self [id number] Medicare Dme Supplies Medigap Part B [id number] Self [id number] Todays Options Amer Prog Medigap Part B [id number] Self [id number] [facility] Options Medigap Part B [id number] Self [id number] Medicare Dme Supplies Medigap Part B [id number] Self [id number] [place] Primary [id number] Self [id number] ANSI-Medicare Part B [id number] ANSI-Commercial [id number] ANSI-Commercial [id number] ANSI-Medicare Part B [id number] Medicare Dme Supplies Medigap Part B [id number] Self [id number] Todays Options Amer Prog Medigap Part B [id number] Self [id number] [facility] Options Medigap Part B [id number] Self [id number] Medicare Dme Supplies [facility] Part B [id number] Self [id number] [place] Primary [id number] Self [id number] ANSI-Medicare Part B [id number] ANSI-Commercial [id number] ANS-Medicare Part B [id number] ANSI-Commercial [id number] ANS-Medicare Part B [id number] ANSI-Commercial [id number] [facility]ARP [facility] OPTIONS [id number] SP [id number] Medicare Dme Supplies Medigap Part B [id number] Self [id number] Todays Options Amer Prog [facility] [place] Part B [id number] Self [id number] [facility] Options [facility] [place] Part B [id number] Self [id number] Medicare Dme Supplies [facility] [place] Part B [id number] Self [id number] [place] Primary [id number] Self [id number] [facility]ARP [facility] CARE OPTIONS [id number] SP [id number] ANS-Medicare Part B [id number] ANSI-Commercial [id number] ANSI-Commercial [id number] ANSI-Medicare Part B [id number] ANSI-Commercial [id number] ANSI-Medicare Part B [id number] ANSI-Medicare Part B [id number] ANSI-Commercial [id number] MEDICARE [id number] SP [id number] Medicare Dme Supplies Medigap Part B [id number] Self [id number] Todays Options Amer Prog Medigap Part B [id number] Self [id number] [facility] Options Medigap Part B [id number] Self [id number] Medicare Dme Supplies Medigap Part B [id number] Self [id number] [place] Primary [id number] Self [id number] Medicare Dme Supplies Medigap Part B [id number] Self [id number] Todays Options Amer Prog Medigap Part B [id number] Self [id number] [facility] Options Medigap Part B [id number] Self [id number] Medicare Dme Supplies Medigap Part B [id number] Self [id number] [place] Primary [id number] Self [id number] Medicare Dme Supplies Medigap Part B [id number] Self [id number] Todays Options Amer Prog Medigap Part B [id number] Self [id number] [facility] Options Medigap Part B [id number] Self [id number] Medicare Dme Supplies Medigap Part B [id number] Self [id number] [place] Primary [id number] Self [id number] Medicare Dme Supplies Medigap Part B [id number] Self [id number] Todays Options Amer Prog Medigap Part B [id number] Self [id number] [facility] Options Medigap Part B [id number] Self [id number] Medicare Dme Supplies Medigap Part B [id number] Self [id number] [place] Primary [id number] Self [id number] Medicare Dme Supplies Medigap Part B [id number] Self [id number] Todays Options Amer Prog Medigap Part B [id number] Self [id number] [facility] Options Medigap Part B [id number] Self [id number] Medicare Dme Supplies Medigap Part B [id number] Self [id number] [place] Primary [id number] Self [id number] Medicare Dme Supplies Medigap Part B [id number] Self [id number] Todays Options Amer Prog Medigap Part B [id number] Self [id number] [facility] Options Medigap Part B [id number] Self [id number] Medicare Dme Supplies Medigap Part B [id number] Self [id number] [place] Primary [id number] Self [id number] Medicare Dme Supplies Medigap Part B [id number] Self [id number] Todays Options Amer Prog Medigap Part B [id number] Self [id number] [facility] Options Medigap Part B [id number] Self [id number] Medicare Dme Supplies Medigap Part B [id number] Self [id number] Medicare [facility] Medicare Primary [id number] Self [id number] Medicare Dme Supplies Medigap Part B [id number] Self [id number] Todays Options Amer Prog Medigap Part B [id number] Self [id number] [facility] Options Medigap Part B [id number] Self [id number] [place] Primary [id number] Self [id number] AARP HE[facility] CARE OPTIONS [id number] SP [id number] AARP O [id number] S [id number] MEDICARE C [id number] S [id number] Medicare Dme Supplies Medigap Part B [id number] Self [id number] Todays Options Amer Prog Medigap Part B [id number] Self [id number] [facility] Options Medigap Part B [id number] Self [id number] [place] Medicare Primary [id number] Self [id number] Aarp Medigap Part B Self [place] Medicare Primary Self AARP HEALTH CARE OPTIONS [id number] SP [id number] AARP U [id number] Self [id number] MEDICARE A [id number] Self [id number] D MEDICARE [id number] SP [id number] MEDICARE PART A-[facility] [id number] 18 [id number] AARP [facility] CARE OPTIONS-[facility] [id number] 18 [id number] B [facility] [id number] SP [id number] B Surgeries/Procedures Procedure Description Date Indications Data Source(s) Office Visit, Est Pt., Level 4 PC 10/14/2019 12:00:00 AM EST eCW1 ([facility]) Office Visit, Est Pt., Level 2 FC 10/14/2019 12:00:00 AM EST eCW1 ([facility]) Results ID Date Data Source [id number] 09/26/2020 08:30:00 AM EST [facility] Name Value Range Interpretation Code Description Data Yojana rce(s) Supporting Document(s) SARS coronavirus 2 RNA Not Detected [facility] [place] This lab was ordered by [facility] and reported by [facility]. ID Date Data Source [id number] 09/19/2020 09:00:00 AM EST [facility] Name Value Range Interpretation Code Description Data Yojana rce(s) Supporting Document(s) SARS coronavirus 2 RNA [facility] This lab was ordered by [facility] and reported by [facility]. ID Date Data Source VITAMIN D [id number] 10/14/2019 12:00:00 AM EST eCW1 ([facility]) Name Value Range Interpretation Code Description Data Yojana rce(s) Supporting Document(s) 50.5 30.0-100.0 TOTAL 25(OH) VITAMIN D eC W1 ([facility]) ID Date Data Source Basic Metabolic Profile (BMP) 10/14/2019 12:00:00 AM EST eCW 1 ([facility]) Name Value Range Interpretation Code Description Data Yojana rce(s) Supporting Document(s) 97 70-100 GLUCOSE, FASTING eCW1 ([facility]) 22 7-18 BLOOD UREA NITROGEN eCW1 ([facility]) 1.05 0.55-1.30 CREATININE FOR GFR eCW1 ([facility]) 99 98-107 CHLORIDE LEVEL eCW1 ([facility]) 53.0 >32 GLOMERULAR FILTRATION RATE eCW 1 ([facility]) 3.9 3.5-5.1 POTASSIUM SERUM eCW1 ([facility]) 136 136-145 SODIUM LEVEL eCW1 ([facility]) 32 21-32 CARBON DIOXIDE LEVEL eCW1 ([facility]) 9.5 8.8-10.2 CALCIUM LEVEL eCW1 ([facility]) Procedure Social History Code Duration Value Status Description Data Source(s ) Smoking 10/14/2019 12:00:00 AM EST Never Smoker completed Never S moker eCW1 ([facility]) Smoking 10/14/2019 12:00:00 AM EST Never Smoker completed Never S moker eCW1 ([facility]) Smoking 10/14/2019 12:00:00 AM EST Never Smoker completed Never S moker eCW1 ([facility]) Smoking 10/14/2019 12:00:00 AM EST Never Smoker completed Never S moker eCW1 ([facility]) Vital Signs ID Date Data Source UNK Name Value Range Interpretation Code Description Data Source(s) Diastolic blood pressure 66 mm[Hg] 66 mm[Hg] eCW1 ([facility]) Systolic blood pressure 120 mm[Hg] 120 mm[Hg] e CW1 ([facility]) Body temperature 95.7 [degF] 95.7 [degF] eCW1 ( [facility]) Respiratory rate 18 /min 18 /min eCW1 ([facility]) Heart rate 64 /min 64 /min eCW1 ([facility]) Body mass index (BMI) [Ratio] 28.84 kg/m2 28.84 kg/m2 eCW1 ([facility]) Body height [in_us] eCW1 ([facility]) Body weight Measured 138 [lb_av] 138 [lb_av] eC W1 ([facility]) Patient Treatment Plan of Care Planned Activity Planned Date Details Description Data Source (s) Alendronic acid 70 MG Oral Tablet 10/14/2019 12:00:00 AM EST eCW1 ([facility]) Alendronic acid 70 MG Oral Tablet 10/14/2019 12:00:00 AM EST eCW1 ([facility]) Alendronic acid 70 MG Oral Tablet 10/14/2019 12:00:00 AM EST eCW1 ([facility]) Alendronic acid 70 MG Oral Tablet 10/14/2019 12:00:00 AM EST eCW1 ([facility]) Alendronic acid 70 MG Oral Tablet 10/14/2019 12:00:00 AM EST eCW1 ([facility])
[2020-10-01] MEDS ORDERED: BSS IRR 500ML/OMIDRIA 4ML IRR BAG (OR ONLY) As Ordered ONE (11:00)
[2020-10-01 12:50] VITALS: BP 176/72
--- NOTE | 2020-10-12 13:28 | RO ---
OPERATIVE NOTE DATE OF OPERATION: 10/01/2020 PREOPERATIVE DIAGNOSIS: 1. Visually significant nuclear sclerotic cataract, right eye. POSTOPERATIVE DIAGNOSIS: 1. Visually significant nuclear sclerotic cataract, right eye. PROCEDURE: 1. Cataract extraction with use of phacoemulsification, and placement of intraocular lens, AU00T0, D 22.5, right eye. SURGEON: Irvin Wall DO ANESTHESIA: Local (Omidria with MAC) COMPLICATIONS: None POSTOPERATIVE CONDITION: Stable INDICATIONS FOR SURGERY: 1. Blurred vision affecting patient's activities of daily living. DESCRIPTION OF PROCEDURE: The patient was seen in the preoperative area and properly identified. The correct operative eye was identified and marked. The patient received topical anesthetic, antibiotics, and topical dilating drops. The patient was then transferred to the operating room. The correct side was re-identified and a time-out was performed. The eye was prepped and draped in a sterile fashion. The eyelids were isolated with Tegaderm tape and the lids were held open with an adjustable speculum. A 1.0mm paracentesis incision was made. Omidria was then injected into the anterior chamber. Viscoelastic was then injected into the anterior chamber through the paracentesis. Using a 2.4mm sharp-tipped keratome, the anterior chamber was entered via a temporal clear cornea incision. A continuous curvilinear capsulorrhexis was created with Utrata forceps. Hydrodissection was performed with BSS on a blunt cannula until the nucleus was able to rotate freely. The crystalline lens was phacoemulsified and aspirated. Irrigation/aspiration was used to remove the cortical material Cohesive viscoelastic was placed into the capsular bag to deepen it. The implant was placed into the capsular bag and allowed to unfold. Placement was confirmed by visualizing the anterior capsulorrhexis. Irrigation/aspiration was used to remove the viscoelastic. The clear corneal incision was hydrated with BSS on a blunt cannula. The lens was well positioned. Intracameral antibiotic was injected into the anterior chamber. The incisions were then tested for leaks and found to be negative. The eye was then palpated for appropriate pressure and adjusted accordingly with BSS. The eyelid speculum was then carefully removed. A shield was placed over the eye. The patient tolerated the procedure well and was discharge to the recovery unit in a stable condition. NESHA
== END 2020-10-01 13:05 | disposition home or self-care (01) ==
LOC: M SDC 10:05
PROVIDERS: ATTEND Ophthalmology
DX: H25.11 Age-related nuclear cataract, right eye (principal); I10 Essential (primary) hypertension; K21.9 Gastro-esophageal reflux disease without esophagitis; Z79.899 Other long term (current) drug therapy; Z88.5 Allergy status to narcotic agent; Z88.8 Allergy status to other drugs, medicaments and biological substances
CPT/HCPCS: 66984; J1097; J2250; J3010; V2632

== ENCOUNTER → 2020-12-16 | Outpatient (CLI) | payer MEDICARE ==
[~2020-12-16] MED LIST changes: -CEFUROXIME 1MG/0.1ML INTRACAMERAL INJ As Ordered ONE; -DUOVISC (0.50ML VISCOAT/0.55ML PROVISC) OPHTH KIT As Ordered ONE; +FOSA70TA PO; -MIDAZOLAM INJ 2MG/2ML VIAL (J2250 PER 1MG) As Ordered ONE; -OFLOXACIN 0.3 % (OCUFLOX) OPTH SOL 5ML OD ONE; -PEG1POW PO; -PHENYLEPHRINE 2.5% OPHTH SOL 2ML OD ONE; +POLY17PO18 PO; -POVIDONE-IODINE 5% OPHTH PREP SOL 30ML As Ordered ONE; -PROPARACAINE 0.5% OPHTH SOL 15ML OD ONE; -TROPICAMIDE 1% OPHTH SOLN 2ML OD ONE; -fentaNYL 100 MCG/2 ML INJECTION (J3010) As Ordered ONE
[2020-12-16 12:00] LABS: CALCIUM LEVEL 9.4 MG/DL (8.8-10.2); CREATININE FOR GFR 0.97 MG/DL (0.55-1.30)
== END ==
LOC: M WUC 10:01
PROVIDERS: ATTEND Family Medicine
DX: I10 Essential (primary) hypertension (principal)

== ENCOUNTER → 2021-03-16 | Outpatient (CLI) | payer MEDICARE ==
[2021-03-16 16:24] LABS: HEMATOCRIT 40.8 % (36.0-47.0); HEMOGLOBIN 13.3 g/dl (12.0-15.5); MEAN CORPUSCULAR HGB CONC 32.6 g/dl (32.0-36.5); MEAN CORPUSCULAR VOLUME 85.9 fl (80.0-96.0); PLATELET COUNT, AUTOMATED 169 10^3/uL (150-450); RED BLOOD COUNT 4.75 10^6/uL (4.00-5.40); WHITE BLOOD COUNT 4.3 10^3/uL (4.0-10.0)
[2021-03-16 16:46] LABS: CALCIUM LEVEL 8.9 MG/DL (8.8-10.2); CREATININE FOR GFR 0.96 MG/DL (0.55-1.30); GLOMERULAR FILTRATION RATE 58.7 (>32); POTASSIUM SERUM 3.4 MEQ/L (3.5-5.1)
== END ==
LOC: M WUC 13:28
PROVIDERS: ATTEND Family Medicine
DX: N18.31 Chronic kidney disease, stage 3a (principal); Z79.899 Other long term (current) drug therapy

== ENCOUNTER → 2021-04-05 | Outpatient (CLI) | payer MEDICARE ==
[2021-04-05 17:12] LABS: CALCIUM LEVEL 9.6 MG/DL (8.8-10.2); CREATININE FOR GFR 1.03 MG/DL (0.55-1.30); GLOMERULAR FILTRATION RATE 54.1 (>32); POTASSIUM SERUM 4.1 MEQ/L (3.5-5.1)
== END ==
LOC: M WUC 11:47
PROVIDERS: ATTEND Family Medicine
DX: E87.6 Hypokalemia (principal)

== ENCOUNTER → 2021-06-07 | Outpatient (CLI) | payer MEDICARE | LOC: M WHC 10:46 | PROVIDERS: ATTEND Internal Medicine Medical Oncology | DX: Z12.31 Encounter for screening mammogram for malignant neoplasm of breast (principal) ==

== ENCOUNTER → 2021-07-27 | Outpatient (CLI) | payer MEDICARE ==
[2021-07-27 12:15] LABS: CALCIUM LEVEL 9.3 MG/DL (8.8-10.2)
== END ==
LOC: M CARPUL 09:23
PROVIDERS: ATTEND Family Medicine
DX: R01.1 Cardiac murmur, unspecified (principal)

== ENCOUNTER → 2021-11-08 | Outpatient (CLI) | payer MEDICARE ==
[2021-11-08 17:31] LABS: HEMATOCRIT 40.7 % (36.0-47.0); HEMOGLOBIN 13.4 g/dl (12.0-15.5); MEAN CORPUSCULAR HEMOGLOBIN 28.2 pg (27.0-33.0); MEAN CORPUSCULAR HGB CONC 32.9 g/dl (32.0-36.5); MEAN CORPUSCULAR VOLUME 85.7 fl (80.0-96.0); PLATELET COUNT, AUTOMATED 199 10^3/uL (150-450); RED BLOOD COUNT 4.75 10^6/uL (4.00-5.40); WHITE BLOOD COUNT 4.9 10^3/uL (4.0-10.0)
[2021-11-08 17:41] LABS: CALCIUM LEVEL 9.5 MG/DL (8.8-10.2); CREATININE FOR GFR 0.98 MG/DL (0.55-1.30); GLOMERULAR FILTRATION RATE 57.2 (>32); POTASSIUM SERUM 3.5 MEQ/L (3.5-5.1)
== END ==
LOC: M PLALAB 15:07
PROVIDERS: ATTEND Family Medicine
DX: N18.31 Chronic kidney disease, stage 3a (principal); Z79.899 Other long term (current) drug therapy

== ENCOUNTER → 2022-04-28 | Outpatient (REF) | payer MEDICARE | LOC: M SFHCPLAZ 16:54 | PROVIDERS: ATTEND Physician Assistant | DX: R35.0 Frequency of micturition (principal) ==

== ENCOUNTER → 2022-06-24 | Outpatient (CLI) | payer MEDICARE ==
[~2022-06-24] MED LIST changes: +ALEN70TA87 PO; -FOSA70TA PO
[2022-06-24 14:12] LABS: BASO % 0.6 % (0.0-1.0); EOS # 0.1 10^3/uL (0.0-0.5); EOS % 2.7 % (0.0-3.0); HEMATOCRIT 41.5 % (36.0-47.0); HEMOGLOBIN 13.4 g/dl (12.0-15.5); LYMPH # 0.8 10^3/uL (1.5-5.0); LYMPH % 24.1 % (24.0-44.0); MEAN CORPUSCULAR HEMOGLOBIN 27.8 pg (27.0-33.0); MEAN CORPUSCULAR HGB CONC 32.3 g/dl (32.0-36.5); MEAN CORPUSCULAR VOLUME 86.1 fl (80.0-96.0); MONO # 0.4 10^3/uL (0.0-0.8); MONO % 12.3 % (2.0-8.0); PLATELET COUNT, AUTOMATED 176 10^3/uL (150-450); RED BLOOD COUNT 4.82 10^6/uL (4.00-5.40); WHITE BLOOD COUNT 3.3 10^3/uL (4.0-10.0)
[2022-06-24 16:01] LABS: ALBUMIN 3.8 GM/DL (3.2-5.2); ALT/SGPT 32 U/L (12-78); BILIRUBIN,TOTAL 0.9 MG/DL (0.2-1.0); BLOOD UREA NITROGEN 21 MG/DL (7-18); CALCIUM LEVEL 9.7 MG/DL (8.8-10.2); CARBON DIOXIDE LEVEL 31 MEQ/L (21-32); CHLORIDE LEVEL 100 MEQ/L (98-107); CREATININE FOR GFR 0.93 MG/DL (0.55-1.30); GLOMERULAR FILTRATION RATE > 60.0 (>32); GLUCOSE, FASTING 93 MG/DL (70-100); SODIUM LEVEL 136 MEQ/L (136-145); TOTAL PROTEIN 7.1 GM/DL (6.4-8.2)
== END ==
LOC: M WUC 10:29
PROVIDERS: ATTEND Physician Assistant
DX: I10 Essential (primary) hypertension (principal)

== ENCOUNTER → 2022-07-22 | Outpatient (CLI) | payer MEDICARE | LOC: M WHC 14:21 | PROVIDERS: ATTEND Physician Assistant | DX: Z12.31 Encounter for screening mammogram for malignant neoplasm of breast (principal); M85.851 Other specified disorders of bone density and structure, right thigh; M85.852 Other specified disorders of bone density and structure, left thigh ==

== ENCOUNTER → 2023-03-14 | Outpatient (REF) | payer MEDICARE | LOC: M SFHCPLAZ 13:06 | PROVIDERS: ATTEND Physician Assistant | DX: N39.0 Urinary tract infection, site not specified (principal) ==

== ENCOUNTER → 2023-05-08 | Outpatient (REF) | payer MEDICARE | LOC: M SFHCDERM 18:00 | PROVIDERS: ATTEND Physician Assistant | DX: D49.2 Neoplasm of unspecified behavior of bone, soft tissue, and skin (principal) ==

== ENCOUNTER → 2023-07-04 | Outpatient (CLI) | payer MEDICARE ==
[2023-07-04 18:26] LABS: BASO % 0.6 % (0.0-1.0); EOS # 0.2 10^3/uL (0.0-0.5); EOS % 3.1 % (0.0-3.0); HEMATOCRIT 41.6 % (36.0-47.0); LYMPH # 1.2 10^3/uL (1.5-5.0); LYMPH % 21.8 % (24.0-44.0); MEAN CORPUSCULAR HEMOGLOBIN 28.8 pg (27.0-33.0); MEAN CORPUSCULAR HGB CONC 33.7 g/dl (32.0-36.5); MEAN CORPUSCULAR VOLUME 85.6 fl (80.0-96.0); MONO # 0.6 10^3/uL (0.0-0.8); MONO % 11.7 % (2.0-8.0); NEUTROPHILS # 3.4 10^3/uL (1.5-8.5); NEUTROPHILS % 62.6 % (36.0-66.0); PLATELET COUNT, AUTOMATED 216 10^3/uL (150-450); RED BLOOD COUNT 4.86 10^6/uL (4.00-5.40); WHITE BLOOD COUNT 5.5 10^3/uL (4.0-10.0)
[2023-07-04 18:52] LABS: ALKALINE PHOSPHATASE 67 U/L (46-116); ALT/SGPT 33 U/L (7.0-40); AST/SGOT 34 U/L (<34); BILIRUBIN,TOTAL 0.9 MG/DL (0.3-1.2); BLOOD UREA NITROGEN 21 MG/DL (9-23); CALCIUM LEVEL 9.2 MG/DL (8.3-10.6); CARBON DIOXIDE LEVEL 31 MMOL/L (20-31); CHLORIDE LEVEL 101 MMOL/L (98-107); CHOLESTEROL LEVEL 189 MG/DL (<200); CHOLESTEROL RISK RATIO 3.99 (<5); CREATININE FOR GFR 0.79 MG/DL (0.55-1.30); GLOMERULAR FILTRATION RATE > 60.0 (>32); GLUCOSE, FASTING 85 MG/DL (74-106); HDL CHOLESTEROL 47.3 MG/DL (>40); LDL CHOLESTEROL 97.3 MG/DL (<100); MAGNESIUM LEVEL 1.9 MG/DL (1.8-2.4); NON-HDL-C 141.7 MG/DL; POTASSIUM SERUM 3.8 MMOL/L (3.5-5.1); SODIUM LEVEL 140 MMOL/L (136-145); TOTAL PROTEIN 7.1 G/DL (5.7-8.2); TRIGLYCERIDES LEVEL 222 MG/DL (<150)
[2023-07-04 18:53] LABS: FREE T4 0.96 NG/DL (0.89-1.76)
[2023-07-04 18:55] LABS: TOTAL 25(OH) VITAMIN D 71.8 NG/ML (20.0-100.0)
== END ==
LOC: M PLAIMG 15:51
PROVIDERS: ATTEND Physician Assistant
DX: M19.011 Primary osteoarthritis, right shoulder (principal); N18.31 Chronic kidney disease, stage 3a; I12.9 Hypertensive chronic kidney disease with stage 1 through stage 4 chronic kidney disease, or unspecified chronic kidney disease; N39.41 Urge incontinence; N39.3 Stress incontinence (female) (male); M79.601 Pain in right arm; Z13.21 Encounter for screening for nutritional disorder

== ENCOUNTER → 2023-07-24 | Outpatient (CLI) | payer MEDICARE | LOC: M WHC 16:30 | PROVIDERS: ATTEND Physician Assistant | DX: Z12.31 Encounter for screening mammogram for malignant neoplasm of breast (principal) ==

== ENCOUNTER 2024-02-07 14:20 | Emergency (ER) | payer MEDICARE ==
[~2024-02-07] VITALS: Ht 147.3 cm; Wt 60.0 kg
[2024-02-07 16:34] VITALS: BP 160/80; TEMP 98.3; O2SAT 99
== END 2024-02-07 16:35 | disposition home or self-care (01) ==
LOC: M ED 14:20
DX: S06.0X0A Concussion without loss of consciousness, initial encounter (principal); S00.83XA Contusion of other part of head, initial encounter; Y92.019 Unspecified place in single-family (private) house as the place of occurrence of the external cause; Y93.9 Activity, unspecified; Y99.9 Unspecified external cause status; I10 Essential (primary) hypertension; M81.0 Age-related osteoporosis without current pathological fracture; Z85.3 Personal history of malignant neoplasm of breast; Z88.8 Allergy status to other drugs, medicaments and biological substances; Z79.899 Other long term (current) drug therapy; Z79.810 Long term (current) use of selective estrogen receptor modulators (SERMs)

== ENCOUNTER → 2024-07-23 | Outpatient (CLI) | payer MEDICARE ==
[~2024-07-23] MED LIST changes: -CRAN400C PO; +CRANBERRY400 MG PO
[2024-07-23 15:05] LABS: BASO % 0.5 % (0.0-1.0); EOS # 0.1 10^3/uL (0.0-0.5); EOS % 2.5 % (0.0-3.0); HEMATOCRIT 39.8 % (36.0-47.0); HEMOGLOBIN 13.3 g/dl (12.0-15.5); LYMPH % 22.3 % (24.0-44.0); MEAN CORPUSCULAR HEMOGLOBIN 28.2 pg (27.0-33.0); MEAN CORPUSCULAR HGB CONC 33.4 g/dl (32.0-36.5); MEAN CORPUSCULAR VOLUME 84.5 fl (80.0-96.0); MONO # 0.5 10^3/uL (0.0-0.8); NEUTROPHILS # 2.8 10^3/uL (1.5-8.5); NEUTROPHILS % 62.5 % (36.0-66.0); PLATELET COUNT, AUTOMATED 187 10^3/uL (150-450); RED BLOOD COUNT 4.71 10^6/uL (4.00-5.40); WHITE BLOOD COUNT 4.4 10^3/uL (4.0-10.0)
[2024-07-23 15:15] LABS: HEMOGLOBIN A1c 5.1 % (4.0-6.0)
[2024-07-23 15:27] LABS: FERRITIN 137.8 NG/ML (7.3-270.7); THYROID STIMULATING HORMONE 2.728 uIU/ML (0.55-4.78); TOTAL 25(OH) VITAMIN D 78.3 NG/ML (20.0-100.0)
[2024-07-23 15:28] LABS: IRON (FE) 102 UG/DL (50-170); PERCENT SATURATION 32.9 % (13.2-45.0); TOTAL IRON BINDING CAPACITY 310 UG/DL (250-425)
[2024-07-23 15:29] LABS: ALBUMIN 3.7 G/DL (3.2-5.2); ALKALINE PHOSPHATASE 61 U/L (35-104); ALT/SGPT 30 U/L (7.0-40); AST/SGOT 31 U/L (<34); BILIRUBIN,TOTAL 0.9 MG/DL (0.3-1.2); BLOOD UREA NITROGEN 22 MG/DL (9-23); CALCIUM LEVEL 9.9 MG/DL (8.3-10.6); CARBON DIOXIDE LEVEL 30 MMOL/L (20-31); CHLORIDE LEVEL 103 MMOL/L (98-107); CHOLESTEROL LEVEL 197 MG/DL (<200); CHOLESTEROL RISK RATIO 4.32 (<5); CREATININE FOR GFR 0.89 MG/DL (0.55-1.30); FREE T4 1.18 NG/DL (0.89-1.76); GLOMERULAR FILTRATION RATE > 60.0 (>32); GLUCOSE, FASTING 83 MG/DL (74-106); HDL CHOLESTEROL 45.6 MG/DL (>40); LDL CHOLESTEROL 121.4 MG/DL (<100); NON-HDL-C 151.4 MG/DL; POTASSIUM SERUM 3.8 MMOL/L (3.5-5.1); SODIUM LEVEL 140 MMOL/L (136-145); TOTAL PROTEIN 6.8 G/DL (5.7-8.2); TRIGLYCERIDES LEVEL 150 MG/DL (<150)
[2024-07-23 15:30] LABS: VITAMIN B12 LEVEL 826 PG/ML (211-911)
== END ==
LOC: M PLALAB 14:00
PROVIDERS: ATTEND Physician Assistant
DX: N32.81 Overactive bladder (principal); D50.9 Iron deficiency anemia, unspecified; E78.00 Pure hypercholesterolemia, unspecified

== ENCOUNTER → 2024-07-23 | Outpatient (CLI) | payer MEDICARE | LOC: M WHC 13:29 | PROVIDERS: ATTEND Physician Assistant | DX: Z12.31 Encounter for screening mammogram for malignant neoplasm of breast (principal); Z85.3 Personal history of malignant neoplasm of breast; R92.323 Mammographic fibroglandular density, bilateral breasts ==